=== PATIENT | male | born 1980 ===

== ENCOUNTER 2019-09-13 10:55 | Day surgery (SDC) | payer BC ==
[~2019-09-13] VITALS: Ht 170.2 cm; Wt 89.8 kg
[2019-09-13] VITALS (10 sets, daily range): BP systolic 113–145; BP diastolic 74–95
--- NOTE | 2019-09-13 07:43 | Pre-Procedure Note/Attestation ---
Pre-Procedure Note/Attestation Complete Prior to Procedure Planned Procedure: not applicable Procedure Narrative: TURBT RPG Indications for Procedure Pre-Operative Diagnosis: bladder tumor Attestation I attest that I discussed the nature of the procedure; its benefits; risks and complications; and alternatives (and the risks and benefits of such alternatives ), prior to the procedure, with the patient (or the patient's legal access service representative). I attest that, if there was a reasonable possibility of needing a blood transfusion, the patient (or the patient's legal access service representative) was given the [facility] standardized written summary, pursuant to the [place] Blood Safety Act ([place] Health and Safety Code # 1645, as amended). I attest that I re-evaluated the patient just prior to the surgery and that there has been no change in the patient's H&P, except as documented below: Zak Menon MD Sep 13, 2019 07:43
[~2019-09-13 10:55] MED LIST: Rocuronium Bromide 50mg/5ml Inj IV ONE; ceFAZolin sod 1 GM in NS 55 ML IVPB ONE
[2019-09-13] MEDS ORDERED: NKM (11:58)
[2019-09-13] MEDS ORDERED: Iothalamate Meglumine 60% 30ML INJ ONE (12:51)
[2019-09-13] MEDS ORDERED: LR 1000ml 1,000 ML IVLG SCH (12:54)
--- NOTE | 2019-09-13 12:58 | Anethesia Preoperative Eval ---
Anesthesia Pre-op PMH/ROS General Date of Evaluation: Sep 13, 2019 Time of Evaluation: 13:49 Anesthesiologist: Phoebe ASA Score: ASA 3 Mallampati Score Class I : Soft palate, uvula, fauces, pillars visible Class II: Soft palate, uvula, fauces visible Class III: Soft palate, base of uvula visible Class IV: Only hard plate visible Mallampati Classification: Class II Surgeon: Sinan Diagnosis: Bladder Tumor Surgical Procedure: TURBT Anesthesia History: none Family History: no anesthesia problems Allergies: Coded Allergies: No Known Allergies (Unverified , 09/12/19) Medications: see eMAR Patient NPO?: Yes Past Medical History Cardiovascular: Reports: HTN Gastrointestinal/Genitourinary: Reports: other - Bladder CA Anesthesia Pre-op Phys. Exam Physician Exam Last Vital Signs Date Time Temp Pulse Resp B/P (MAP) Pulse Ox O2 Delivery O2 Flow Rate FiO2 09/13/19 11:55 Room Air 09/13/19 11:52 98.0 84 20 139/84 100 Constitutional: NAD Neurologic: CN 2-12 intact Cardiovascular: RRR Respiratory: CTA Gastrointestinal: S/NT/ND Airway Exam Mallampati Score: Class II MO: full ROM: full Teeth: intact Anesthesia Pre-op A/P Risk Assessment & Plan Assessment: ASA 3 Plan: GA Status Change Before Surgery: No Pre-Antibiotics Dru grams Ancef IV Given Within 1 Hr of Incision: Yes Time Given: 13:53 Clemente Sandhu MD Sep 13, 2019 12:58
[2019-09-13] MEDS ORDERED: Hydromorphone 0.5mg/0.5ml inj IVP PRN (13:00)
[2019-09-13] MEDS ORDERED: oxyCODONE HCL/Acetaminophen 5/325mg ORAL PRN (13:00)
[2019-09-13] MEDS ORDERED: Meperidine 50mg/ml Inj(FOR RIGORS ONLY) IVP PRN (13:00)
[2019-09-13] MEDS ORDERED: HYDROcodone/Acetamin 7.5/325 tab ORAL PRN (13:00)
[2019-09-13] MEDS ORDERED: Midazolam 2mg/2ml Inj IVP PRN (13:00)
[2019-09-13] MEDS ORDERED: Metoclopramide 10mg/2ml Inj IVP PRN (13:00)
[2019-09-13] MEDS ORDERED: Labetalol 5mg/ml 20ml vial IV PRN (13:00)
[2019-09-13] MEDS ORDERED: LORazepam Inj 2mg/ml 1ml IV PRN (13:00)
[2019-09-13] MEDS ORDERED: DiphenhydrAMINE 50mg/ml Inj IVP PRN (13:00)
[2019-09-13] MEDS ORDERED: Acetaminophen (Non formulary) 100 ML IV ONE (13:00)
[2019-09-13] MEDS ORDERED: Ketorolac 30mg Inj IV PRN ×2 (13:00)
[2019-09-13] MEDS ORDERED: fentaNYL 100 mcg/2 mL IV PRN (13:00)
[2019-09-13] MEDS ORDERED: HYDROcodone/Acetamin 5/325 tab ORAL PRN ×2 (13:00→13:45)
[2019-09-13] MEDS ORDERED: Atropine Sulfate 0.4mg/ml inj IVP PRN (13:00)
[2019-09-13] MEDS ORDERED: Dexamethasone 4mg/ml vial ONE (13:02)
[2019-09-13] MEDS ORDERED: Sodium Chloride 10ml vial INJ ONE (13:02)
[2019-09-13] MEDS ORDERED: Propofol 200mg/20ml IV ONE (13:02)
[2019-09-13] MEDS ORDERED: fentaNYL 100 mcg/2 mL IV ONE (13:02)
[2019-09-13] MEDS ORDERED: Lidocaine 1% MPF 10mg/ml 5ml ONE (13:02)
--- NOTE | 2019-09-13 13:07 | Immediate Post-Op Evaluation ---
Immediate Post-Op Evalulation Immediate Post-Op Evalulation Procedure: ESWL Date of Evaluation: Sep 13, 2019 Time of Evaluation: 14:54 IV Fluids: 700 LR Blood Products: 0 Estimated Blood Loss: 25 Urinary Output: 0 Blood Pressure Systolic: 146 Blood Pressure Diastolic: 88 Pulse Rate: 101 Respiratory Rate: 16 O2 Sat by Pulse Oximetry: 100 Temperature (Fahrenheit): 97.8 Pain Score (1-10): 2 Nausea: No Vomiting: No Complications 0 Patient Status: awake, reacts, patent, extubated, none Hydration Status: adequate Dru Grams Ancef IV Given Within 1 Hr of Incision: Yes Time Given: 13:53 Clemente Sandhu MD Sep 13, 2019 13:07
--- NOTE | 2019-09-13 13:38 | Brief Operative Note ---
Immediate Post Operative Note Operative Note Pre-op Diagnosis: bladder tumor Procedure: TURBT RPG Post-op Diagnosis: same Post-op Diagnosis: same as pre-op Surgeon: Jatinder Menon Anesthesia: general Specimen: yes Complications: none Condition: stable Fluids: 500 Estimated Blood Loss: minimal Implant(s) used?: No Zak Menon MD Sep 13, 2019 13:38
[2019-09-13] MEDS ORDERED: NS Irrig 4000ml IRRIG ONE (13:45)
[2019-09-13] MEDS ORDERED: Tylenol #3 tab (300mg/30mg) ORAL PRN (13:45)
[2019-09-13] MEDS ORDERED: HYDROmorphone 1mg/ml Carpuject SUBQ PRN (13:45)
[2019-09-13] MEDS ORDERED: Neostigmine 1mg/ml 10ml Inj ONE (14:20)
[2019-09-13] MEDS ORDERED: Glycopyrrolate 0.2mg/ml 1ml Vial ONE (14:20)
[2019-09-13] MEDS ORDERED: Naloxone 0.4mg/ml Inj ONE (14:24)
--- NOTE | 2019-09-13 14:39 | 48 Hour Post Anesthesia Eval ---
Post Anesthesia Evaluation Procedure: ESWL Date of Evaluation: Sep 13, 2019 Time of Evaluation: 16:58 Blood Pressure Systolic: 144 0: 78 Pulse Rate: 83 Respiratory Rate: 18 Temperature (Fahrenheit): 98.2 O2 Sat by Pulse Oximetry: 100 Nausea: No Vomiting: No Pain Intensity: 2 Hydration Status: adequate Cardiopulmonary Status: Stable Mental Status/LOC: patient returned to baseline Follow-up Care/Observations: 0 Post-Anesthesia Complications: 0 Follow-up care needed: ready to discharge Clemente Sandhu MD Sep 13, 2019 14:39
[2019-09-13] MEDS ORDERED: Sterile Water Irrig 1000ml IRRIG ONE (15:45)
[2019-09-13] MEDS ORDERED: LR 1000ml ONE (15:45)
--- NOTE | 2019-09-13 16:31 | Diagnostic Imaging Report ---
INDICATION: Pain, intraoperative TECHNIQUE: Intraoperative imaging Fluoroscopy time: 10.9 seconds Total dose: 0.95711 mGym2 Total number of images: 7 COMPARISON: None FINDINGS: Intraprocedural images demonstrate opacification of the left ureter which is normal in caliber. There is a filling defect at the ureteropelvic junction which could be a calculus or an air bubble. Subsequent images demonstrate opacification of the right ureter and renal collecting system, which are normal in caliber IMPRESSION: Intraoperative imaging, as described
[2019-09-13] MEDS ORDERED: D5 1/2NS 1,000 ML IV SCH (18:00)
--- NOTE | 2019-09-14 17:30 | Operative Note - Dictated ---
DATE OF OPERATION: 09/13/2019 PREOPERATIVE DIAGNOSIS: Bladder tumor. POSTOPERATIVE DIAGNOSIS: Bladder tumor. OPERATIONS: Transurethral resection of the large bladder tumor on the left lateral wall, bilateral retrograde pyelograms. ADVERTISER: Zak Menon M.D. ANESTHESIA: General. FINDINGS: This is a large tumor in the left lateral wall close to the left ureteral orifice. INDICATIONS FOR SURGERY: The patient presented with a bladder tumor history was diagnosed several years ago, but he refused to proceed with surgery. Recent MRI showed progression of the tumor in the bladder treatment options were explained to him in great length including all potential complications. He signed the consent. PROCEDURE IN DETAIL: He was brought to the operating room, placed in lithotomy position, prepped and draped in a standard fashion. Under general anesthesia, the resectoscope was introduced into the bladder and tumor was sequentially resected and removed with . Bladder tumor was irrigated and fulgurated. No other lesions were noted in the bladder. After that bilateral retrograde pyelogram was performed, which showed no evidence of filling defects. The patient tolerated the procedure well. Bladder was emptied. Sponge count, instrument count was correct. Soto catheter [place] was placed and left indwelling. The patient tolerated the procedure well. No complications. Zak Menon M.D. DR: ROSANGELA JOB#: [id number] CC:
== END 2019-09-13 16:45 | disposition home or self-care (01) ==
LOC: SUR 10:55
DX: D49.4 Neoplasm of unspecified behavior of bladder (principal); I10 Essential (primary) hypertension; Z85.51 Personal history of malignant neoplasm of bladder
CPT/HCPCS: 52240; 74420; 76000; J0690; J1100; J1170; J2250; J2310; J2405; J2704; J2710; J2765; J3010; J7120; Q9961; 94003; 94150